=== PATIENT | female | born 1960 | race Caucasian/White ===

== ENCOUNTER → 2021-04-12 | Outpatient (CLI) | payer OTHER ==
[~2021-04-12] MED LIST: CALC-112 PO; CARB200T13 PO; CHOL10003 PO; CYCL10TA2 PO; FENO145T32 PO; HYDR-2214 PO; HYDR-3248 PO; IBUP-1902 PO; LISI-167 PO; MULT-449 PO; PARO30TA45; PARO40TA3 PO; TEGRETOL
[2021-04-12 14:39] LABS: BASOPHILS % (AUTO) 1 % (0-1); EOSINOPHILS % (AUTO) 2 % (1-7); LYMPHOCYTES % (AUTO) 55 % (22-44); MEAN CORPUSCULAR HEMOGLOBIN 24.2 pg (27.0-34.8); MEAN CORPUSCULAR HGB CONC 32.3 g/dL (32.4-35.8); MEAN PLATELET VOLUME 7.9 fL (7.4-10.4); MONOCYTES % (AUTO) 6 % (2-9); NEUTROPHILS % (AUTO) 37 % (42-75); PLATELET COUNT 227 x10^3/uL (130-400); RED CELL DISTRIBUTION WIDTH 14.9 % (9.6-15.2)
[2021-04-12 14:45] LABS: CHLORIDE 109 mmol/L (98-107)
[2021-04-12 14:57] LABS: ALANINE AMINOTRANSFERASE 24 U/L (12-78); ALKALINE PHOSPHATASE 105 U/L (45-117); ANION GAP 6 mmol/L (5-15); BILIRUBIN,TOTAL 0.2 mg/dL (0.2-1.0); CALCIUM 10.6 mg/dL (8.5-10.1); CREATININE 0.81 mg/dL (0.55-1.02); TOTAL PROTEIN 7.2 g/dL (6.4-8.2)
[2021-04-12 15:35] LABS: PROTHROMBIN TIME 10.7 Seconds (9.6-11.5)
== END | disposition home or self-care (01) ==
LOC: STAR 13:36
PROVIDERS: ATTEND Neurological Surgery
DX: Z01.818 Encounter for other preprocedural examination (principal); M48.062 Spinal stenosis, lumbar region with neurogenic claudication; I25.2 Old myocardial infarction; Z20.822 Contact with and (suspected) exposure to COVID-19
CPT/HCPCS: 36415; 71046; 80053; 85025; 85610; 85730; 93005; U0003; U0005

== ENCOUNTER 2021-04-18 07:02 | Day surgery (SDC) | payer SELFPAY ==
[~2021-04-18] VITALS: Ht 154.9 cm; Wt 61.4 kg
[~2021-04-18 07:02] MED LIST changes: +BUPIVACAINE/PF 0.5% ONE; +EPINEPHRINE 1 MG/ML, 1ML ONE; +VANCOMYCIN 1,000 MG ONE
[2021-04-18 07:37] VITALS: BP 140/76
[2021-04-18] MEDS ORDERED: MIDAZOLAM 1 MG/ML, 2ML ONE (07:53)
[2021-04-18] MEDS ORDERED: PROPOFOL 10 MG/ML, 20ML ONE (07:54)
[2021-04-18] MEDS ORDERED: CEFAZOLIN 1,000 MG ONE ×2 (07:54)
[2021-04-18] MEDS ORDERED: FENTANYL PF 250 MCG/5ML ONE (07:54)
[2021-04-18] MEDS ORDERED: SODIUM CHLORIDE 0.9% PF 10ML ONE (07:54)
[2021-04-18] MEDS ORDERED: LIDOCAINE-MPF 2% ,5ML ONE (07:54)
[2021-04-18] MEDS ORDERED: ROCURONIUM 10MG/ML,5ML ONE (07:54)
[2021-04-18] MEDS ORDERED: ONDANSETRON 2MG/ML, 2ML ONE (07:54)
[2021-04-18] MEDS ORDERED: DEXAMETHASONE 4 MG/ML, 1ML ONE ×2 (07:54)
[2021-04-18] MEDS ORDERED: CHLORHEXIDINE 15 ML UDC PO ONE (08:00)
[2021-04-18] MEDS ORDERED: LACTATED RINGERS 1,000 ML IV SCH (08:00)
[2021-04-18] MEDS ORDERED: METHOCARBAMOL 1,000 MG in DEXTROSE 5% 100 ML IV PRN (09:00)
[2021-04-18] MEDS ORDERED: ONDANSETRON 2MG/ML, 2ML IVPush PRN (09:00)
[2021-04-18] MEDS ORDERED: LABETALOL 5MG/ML, 20ML IV PRN (09:00)
[2021-04-18] MEDS ORDERED: HYDROmorphone 1 MG/ML, 1ML INJ IVPush PRN (09:00)
[2021-04-18] MEDS ORDERED: OXYcodone 5 MG/5 ML ORAL.SOL UDC PO PRN (09:00)
[2021-04-18] MEDS ORDERED: ACETAMINOPHEN 325 MG TABLET PO PRN (09:00)
[2021-04-18] MEDS ORDERED: DIAZEPAM 5 MG/ML, 2ML IVPush PRN (09:00)
[2021-04-18] MEDS ORDERED: MEPERIDINE/PF 25MG/0.5ML IVPush PRN (09:00)
[2021-04-18] MEDS ORDERED: hydrALAzine 20 MG/ML, 1ML IV PRN (09:00)
[2021-04-18] MEDS ORDERED: GENTAMICIN 80 MG/2 ML ONE (09:12)
[2021-04-18] MEDS ORDERED: NEOSTIGMINE 1 MG/ML, 10ML ONE (09:20)
[2021-04-18] MEDS ORDERED: GLYCOPYRROLATE 0.2MG/1ML, 5ML ONE (09:20)
[2021-04-18] MEDS ORDERED: BUPIVACAINE/PF-EPI 0.5% 1:200K INFIL ONE (09:55)
[2021-04-18] MEDS ORDERED: VANCOMYCIN 1,000 MG IM ONE (09:55)
[2021-04-18] MEDS ORDERED: OXYcodone 5 MG/5 ML ORAL.SOL UDC ONE (11:02)
[2021-04-18] MEDS ORDERED: FENTANYL PF 100 MCG/2ML ONE (11:02)
[2021-04-18] MEDS ORDERED: ACETAMINOPHEN 650 MG/20.3 ML UDC ONE (11:02)
[2021-04-18] MEDS: FENTANYL PF 100 MCG/2ML IV PRN ×2 (11:05→11:16)
[2021-04-18] MEDS ORDERED: HYDROmorphone 2 MG/ML, 1ML ONE (11:21)
== END 2021-04-18 14:35 | disposition home or self-care (01) ==
LOC: OUT 07:02
PROVIDERS: ATTEND Neurological Surgery
DX: M48.062 Spinal stenosis, lumbar region with neurogenic claudication (principal); M48.07 Spinal stenosis, lumbosacral region; M54.17 Radiculopathy, lumbosacral region; I10 Essential (primary) hypertension; E78.5 Hyperlipidemia, unspecified; F41.9 Anxiety disorder, unspecified; F32.9 Major depressive disorder, single episode, unspecified; Z79.891 Long term (current) use of opiate analgesic; Z79.899 Other long term (current) drug therapy; Z98.890 Other specified postprocedural states; Z82.49 Family history of ischemic heart disease and other diseases of the circulatory system; Z80.9 Family history of malignant neoplasm, unspecified
CPT/HCPCS: 63047; 63048; 72100; J0171; J0690; J1100; J1170; J1580; J2250; J2405; J2704; J2710; J2800; J3010; J3370; J7120